=== PATIENT | male | born 1935 | race Caucasian/White ===

== ENCOUNTER 2016-10-20 13:04 | Emergency (ER) | payer MEDICARE ==
--- NOTE | 2016-10-26 09:20 | ER ---
ADMIT: 10/20/2016 RM/LOC: ER [facility] MR#: [id number] [address] [id number] [place] [id number] Emergency Room Report SEX: M AGE: 81 : 1935 DATE: 10/20/2016 BRIEF ADDENDUM: Please see my T-sheet for complete review of systems, past medical history, and physical exam. CHIEF COMPLAINT: Abdominal pain, cannot defecate. HISTORY OF PRESENT ILLNESS: 81-year-old male, who presents via EMS from [place] complaining of inability to have a bowel movement for the past 7 days. States he has had some left lower quadrant pain. Has been passing small-sized stools, is concerned for possible obstruction. Also, states he is having some problems with urination. Admits to some chills. No fever. No nausea, vomiting, diarrhea. He does have a loss of appetite. States the pain in his bladder is worse when he goes to have a bowel movement. However, pain in his abdomen does feel better with movement. Notes some bilateral ankle swelling as well. PAST MEDICAL HISTORY: Coronary artery disease, status post CABG; hypertension; COPD, chronically on 4 L of oxygen; hyperlipidemia; BPH. COURSE IN THE EMERGENCY ROOM: The patient was seen and examined. GENERAL: He is afebrile and nontoxic. No acute distress. RESPIRATORY: Diminished bilaterally with wheezes in the bases. HEART: Regular. He does have a 3/6 systolic murmur. ABDOMEN: He does have some tenderness in the left lower quadrant to palpation. No rebound or guarding. Normal bowel sounds. No McBurney's point tenderness. No CVA tenderness. SKIN: Warm and dry. EXTREMITIES: Nontender. He does have pedal edema bilaterally, 1+. NEURO: He is alert and oriented. LABORATORY DATA: White count 6.7, hemoglobin 12.7, hematocrit 41.4, and platelets 224. Sodium 143, potassium 3.9, BUN 17, glucose 87, creatinine 0.5, lipase 101, AST 10, ALT 14. Lactic acid 1.7. UA shows 40 wbc's per high- power field, 3 rbc's, and 1+ leukocyte esterase, consistent with acute cystitis. I did proceed with a CT of abdomen and pelvis, which shows a 3.2 cm right renal mass as well as a 7-mm right lower lobe pulmonary nodule, new since the previous study completed in 2008. There was extensive sigmoid diverticulosis without any inflammatory changes. He is status post cholecystectomy with some dilatation of the common bile duct. 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 I did phone Dr. Schroeder's office, spoke with Dr. Hair's who is on-call for him today. Made him aware of the patient as well as a CT findings, thought it would be comfortable with this patient discharging home, treating with Jigar and Rachell for early diverticulitis as well as urinary tract infection. I did make him aware of the CT finding, states this is something they could follow up as an outpatient. He would leave a note with Dr. Schroeder. While in the department, the patient was given IV normal saline at a rate 150, refused any Zofran or fentanyl for pain control as he has an allergy to morphine and ADMIT: 10/20/2016 RM/LOC: [facility] MR#: [id number] [address] [place] [id number] [address] [place] [phone] Emergency Room Report SEX: M AGE: 81 : 1935 codeine. IMPRESSION: 1. Left lower quadrant abdominal pain. 2. Acute cystitis. 3. Diverticulosis, sigmoid. 4. Right renal mass. 5. 4 cm aortic bifurcation aneurysm. DISPOSITION: Patient will be started on Cipro 500 mg tabs 1 tab p.o. b.i.d. for 7 days as well as Flagyl 500 mg tabs 1 tab p.o. t.i.d. for 7 days. He is to call Dr. Schroeder's office to make an appointment for next week. I did encourage him to use MiraLax to help him with bowel movements, increase fluids. Continue all home medications, Tylenol Motrin as needed for pain. Return home and rest. Questions sought and answered best of my ability and to the patient's satisfaction. Discharged in stable condition. LETICIA Avalos / Osiel Youssef MD / sam JOB #: [id number] CC: Osiel Youssef MD, Attending Physician George Schroeder MD, Family Physician
== END 2016-10-20 18:55 | disposition home or self-care (01) ==
LOC: ER 13:04
DX: N30.00 Acute cystitis without hematuria (principal); K57.30 Diverticulosis of large intestine without perforation or abscess without bleeding; N28.89 Other specified disorders of kidney and ureter; I71.9 Aortic aneurysm of unspecified site, without rupture; J44.9 Chronic obstructive pulmonary disease, unspecified; I10 Essential (primary) hypertension; I25.10 Atherosclerotic heart disease of native coronary artery without angina pectoris; E78.5 Hyperlipidemia, unspecified; Z90.49 Acquired absence of other specified parts of digestive tract; Z88.5 Allergy status to narcotic agent; Z95.1 Presence of aortocoronary bypass graft